=== PATIENT | female | born 1995 | race Two or more races ===

== ENCOUNTER 2022-11-21 00:47 | Emergency (ER) | payer OTHER ==
[~2022-11-21] VITALS: Ht 162.6 cm; Wt 87.1 kg
[2022-11-21] MEDS ORDERED: PRENATAL 19 CH1 EACH (00:50)
== END 2022-11-21 11:08 | disposition home or self-care (01) ==
LOC: ER 00:47
DX: O20.9 Hemorrhage in early pregnancy, unspecified (principal); O34.82 Maternal care for other abnormalities of pelvic organs, second trimester; N83.202 Unspecified ovarian cyst, left side; Z3A.17 17 weeks gestation of pregnancy